=== PATIENT | male | born 1950 | race African-American/Black ===

== ENCOUNTER 2020-09-19 18:04 | Inpatient (IN) | payer MEDICARE, OTHER ==
[~2020-09-19] VITALS: Ht 172.7 cm; Wt 72.6 kg
[~2020-09-19 18:04] MED LIST: ALBUTEROL SULF8.5 GM INH; ASPIRIN81 MG ORAL; ATORVASTATIN CA10 MG ORAL; AZITHROMYCIN250 MG ORAL; BENAZEPRIL HCL10 MG ORAL; NORVASC2.5 MG ORAL
[2020-09-19] MEDS ORDERED: Aspirin Baby 81mg ONE (18:30)
[2020-09-19 18:44] VITALS: BP 141/72
[2020-09-19] MEDS ORDERED: Aspirin Baby 81mg ORAL ONE (18:45)
--- NOTE | 2020-09-19 18:55 | Emergency Room Report ---
History of Present Illness General Chief Complaint: Chest Pain Present Illness HPI Patient is a 69-year-old male who presents for increased central chest pain. Onset of symptoms approximately hour prior to arrival. Prior history of hypertension as well as smoking. Denies any fever. Denies any recent cough. Pain at onset at rest. Denies any fever or vomiting. Change in position do not modify the pain. Allergies: Coded Allergies: No Known Allergies (Unverified , 06/27/12) COVID-19 Screening Contact w/high risk pt: No Experienced COVID-19 symptoms?: No COVID-19 Testing performed REPRODUCTION SPECIALIST: No Patient History Past Medical History: see triage record Reviewed Nursing Documentation: PMH: Agreed; PSxH: Agreed Nursing Documentation-PMH Hx Cardiac Problems: Yes Hx Hypertension: Yes Hx Pacemaker: No Hx Asthma: No Hx COPD: No Hx Diabetes: No Hx Cancer: No Hx Dialysis: No Hx Neurological Problems: No Hx Cerebrovascular Accident: No Hx Seizures: No Review of Systems All Other Systems: negative except mentioned in HPI Physical Exam Vital Signs Date Time Temp Pulse Resp B/P (MAP) Pulse Ox O2 Delivery O2 Flow Rate FiO2 09/19/20 18:30 98.6 76 20 146/78 (100) 95 Room Air 09/19/20 18:44 97 Sp02 EP Interpretation: reviewed, normal General Appearance: normal inspection, well appearing, no apparent distress, alert, GCS 15, non-toxic Head: atraumatic ENT: normal ENT inspection, hearing grossly normal, normal voice Neck: normal inspection, full range of motion, supple, no bony tend Respiratory: normal inspection, lungs clear, normal breath sounds, no respiratory distress, no retraction, no wheezing Cardiovascular #1: regular rate, rhythm, no edema Gastrointestinal: normal inspection, normal bowel sounds, non tender, soft, no guarding, no hernia Genitourinary: no CVA tenderness Musculoskeletal: normal inspection, back normal, normal range of motion Neurologic: alert, responsive, speech normal, normal inspection Psychiatric: normal inspection, judgement/insight normal, mood/affect normal Medical Decision Making Diagnostic Impression: Primary Impression: Acute chest pain Additional Impression: ACS (acute coronary syndrome) ER Course Patient presented for chest pain.Differential diagnosis includes not limited to pneumonia, myocardial infarction, COPD among others. Because of complexity of patient's case laboratory tests and imaging studies were ordered. Patient was noted to have concerning appearing EKG which was sent to [facility] for evaluation. Per [facility] doesn't meet STEMI criteria. Patient's pain was noted to improve after aspirin and nitroglycerin patient had resolution of symptoms subsequently given the patient's risk factors I feel that hospital admission is indicated. Patient's initial troponin was noted to be negative as well as repeat [address] Leoncio Lindsay was contacted for inpatient management Laboratory Tests Test 09/19/20 18:39 09/19/20 19:35 09/20/20 06:15 White Blood Count 8.0 K/UL (4.8-10.8) 5.4 K/UL (4.8-10.8) Red Blood Count 4.79 M/UL (4.70-6.10) 4.54 M/UL (4.70-6.10) L Hemoglobin 13.0 G/DL (14.2-18.0) L 12.5 G/DL (14.2-18.0) L Hematocrit 40.4 % (42.0-52.0) L 39.6 % (42.0-52.0) L Mean Corpuscular Volume 84 FL (80-99) 87 FL (80-99) Mean Corpuscular Hemoglobin 27.2 PG (27.0-31.0) 27.6 PG (27.0-31.0) Mean Corpuscular Hemoglobin Concent 32.2 G/DL (32.0-36.0) 31.6 G/DL (32.0-36.0) L Red Cell Distribution Width 15.6 % (11.6-14.8) H 15.4 % (11.6-14.8) H Platelet Count 207 K/UL (150-450) 187 K/UL (150-450) Mean Platelet Volume 9.6 FL (6.5-10.1) 10.2 FL (6.5-10.1) H Neutrophils (%) (Auto) % (45.0-75.0) 50.8 % (45.0-75.0) Lymphocytes (%) (Auto) % (20.0-45.0) 34.1 % (20.0-45.0) Monocytes (%) (Auto) % (1.0-10.0) 12.3 % (1.0-10.0) H Eosinophils (%) (Auto) % (0.0-3.0) 1.7 % (0.0-3.0) Basophils (%) (Auto) % (0.0-2.0) 1.1 % (0.0-2.0) Differential Total Cells Counted 100 Neutrophils % (Manual) 82 % (45-75) H Lymphocytes % (Manual) 16 % (20-45) L Monocytes % (Manual) 2 % (1-10) Eosinophils % (Manual) 0 % (0-3) Basophils % (Manual) 0 % (0-2) Band Neutrophils 0 % (0-8) Platelet Estimate Adequate Platelet Morphology Normal Anisocytosis 1+ Prothrombin Time 11.9 SEC (9.30-11.50) H Prothrombin Time INR 1.1 (0.9-1.1) Activated Partial Thromboplast Time 27 SEC (23-33) Sodium Level 140 MMOL/L (136-145) 141 MMOL/L (136-145) Potassium Level 4.1 MMOL/L (3.5-5.1) 3.9 MMOL/L (3.5-5.1) Chloride Level 105 MMOL/L (98-107) 107 MMOL/L (98-107) Carbon Dioxide Level 26 MMOL/L (21-32) 26 MMOL/L (21-32) Anion Gap 9 mmol/L (5-15) 8 mmol/L (5-15) Blood Urea Nitrogen 16 mg/dL (7-18) 15 mg/dL (7-18) Creatinine 1.2 MG/DL (0.55-1.30) 1.1 MG/DL (0.55-1.30) Estimated Glomerular Filtration Rate > 60 mL/min (>60) > 60 mL/min (>60) Glucose Level 102 MG/DL (74-106) 73 MG/DL (74-106) L Calcium Level 8.6 MG/DL (8.5-10.1) 8.4 MG/DL (8.5-10.1) L Total Bilirubin 0.3 MG/DL (0.2-1.0) 0.3 MG/DL (0.2-1.0) Aspartate Amino Transferase (AST) 27 U/L (15-37) 24 U/L (15-37) Alanine Aminotransferase (ALT) 35 U/L (12-78) 32 U/L (12-78) Alkaline Phosphatase 143 U/L (46-116) H 119 U/L (46-116) H Troponin I 0.009 ng/mL (0.000-0.056) 0.019 ng/mL (0.000-0.056) 0.014 ng/mL (0.000-0.056) Pro-B-Type Natriuretic Peptide 24 pg/mL (0-125) Total Protein 7.7 G/DL (6.4-8.2) 6.7 G/DL (6.4-8.2) Albumin 3.9 G/DL (3.4-5.0) 3.4 G/DL (3.4-5.0) Globulin 3.8 g/dL 3.3 g/dL Albumin/Globulin Ratio 1.0 (1.0-2.7) 1.0 (1.0-2.7) Lipase 134 U/L (73-393) Phosphorus Level 3.7 MG/DL (2.5-4.9) Magnesium Level 1.8 MG/DL (1.8-2.4) Triglycerides Level 30 MG/DL (30-150) Cholesterol Level 66 MG/DL (< 200) LDL Cholesterol 31 mg/dL (<100) HDL Cholesterol 33 MG/DL (40-60) L Cholesterol/HDL Ratio 2.0 (3.3-4.4) L Last Vital Signs Date Time Temp Pulse Resp B/P (MAP) Pulse Ox O2 Delivery O2 Flow Rate FiO2 09/19/20 18:44 78 17 Room Air 97 09/19/20 18:44 98.6 141/72 98 Status: improved Disposition: ADMITTED INPATIENT Condition: Stable Referrals: NON PHYSICIAN (PCP) Darryn Chatman MD Sep 19, 2020 18:55
[2020-09-19 19:15] VITALS: BP 164/85
[2020-09-19 19:38] LABS: ANION GAP 9 mmol/L (5-15); BLOOD UREA NITROGEN 16 mg/dL (7-18); CALCIUM 8.6 MG/DL (8.5-10.1); CARBON DIOXIDE 26 MMOL/L (21-32); CHLORIDE 105 MMOL/L (98-107); CREATININE 1.2 MG/DL (0.55-1.30); POTASSIUM 4.1 MMOL/L (3.5-5.1); SODIUM 140 MMOL/L (136-145)
[2020-09-19 19:48] LABS: ALANINE AMINOTRANSFERASE 35 U/L (12-78); ALBUMIN 3.9 G/DL (3.4-5.0); ALKALINE PHOSPHATASE 143 U/L (46-116); ASPARTATE AMINO TRANSFERASE 27 U/L (15-37); BILIRUBIN,TOTAL 0.3 MG/DL (0.2-1.0)
[2020-09-19] MEDS ORDERED: Nitroglycerin Subl 0.4mg tab SL PRN ×2 (20:00→23:45)
[2020-09-19 20:12] LABS: HEMATOCRIT 40.4 % (42.0-52.0); MEAN CORPUSCULAR VOLUME 84 FL (80-99); PLATELET COUNT 207 K/UL (150-450); RED BLOOD COUNT 4.79 M/UL (4.70-6.10); RED CELL DISTRIBUTION WIDTH 15.6 % (11.6-14.8)
[2020-09-19 20:19] LABS: INR 1.1 (0.9-1.1)
[2020-09-19] MEDS ORDERED: Enoxaparin 60mg Inj SUBQ ONE (20:45)
[2020-09-19 21:00] VITALS: BP 162/70
[2020-09-19 22:00] VITALS: BP 158/83
[2020-09-20] VITALS: BP 146/66
[2020-09-20 04:00] VITALS: BP 123/62
[2020-09-20] MEDS: Heparin 5000 units/ml inj SUBQ SCH ×2 (05:58→14:10)
[2020-09-20 06:46] LABS: BASOPHILS % (AUTO) 1.1 % (0.0-2.0); EOSINOPHILS % (AUTO) 1.7 % (0.0-3.0); HEMATOCRIT 39.6 % (42.0-52.0); HEMOGLOBIN 12.5 G/DL (14.2-18.0); LYMPHOCYTES % (AUTO) 34.1 % (20.0-45.0); MEAN CORPUSCULAR VOLUME 87 FL (80-99); MONOCYTES % (AUTO) 12.3 % (1.0-10.0); NEUTROPHILS % (AUTO) 50.8 % (45.0-75.0); PLATELET COUNT 187 K/UL (150-450); RED BLOOD COUNT 4.54 M/UL (4.70-6.10); RED CELL DISTRIBUTION WIDTH 15.4 % (11.6-14.8); WHITE BLOOD COUNT 5.4 K/UL (4.8-10.8)
[2020-09-20] MEDS ORDERED: Lexiscan 0.4mg/5ml syringe IV PRN (07:00)
[2020-09-20] MEDS ORDERED: Lexiscan 0.4mg/5ml syringe IV SCH (07:00)
[2020-09-20 07:56] LABS: ALANINE AMINOTRANSFERASE 32 U/L (12-78); ALBUMIN 3.4 G/DL (3.4-5.0); ALKALINE PHOSPHATASE 119 U/L (46-116); ANION GAP 8 mmol/L (5-15); ASPARTATE AMINO TRANSFERASE 24 U/L (15-37); BILIRUBIN,TOTAL 0.3 MG/DL (0.2-1.0); BLOOD UREA NITROGEN 15 mg/dL (7-18); CALCIUM 8.4 MG/DL (8.5-10.1); CARBON DIOXIDE 26 MMOL/L (21-32); CHLORIDE 107 MMOL/L (98-107); CHOLESTEROL 66 MG/DL (< 200); CREATININE 1.1 MG/DL (0.55-1.30); HDL CHOLESTEROL 33 MG/DL (40-60); PHOSPHORUS 3.7 MG/DL (2.5-4.9); POTASSIUM 3.9 MMOL/L (3.5-5.1); SODIUM 141 MMOL/L (136-145); TRIGLYCERIDES 30 MG/DL (30-150)
[2020-09-20 08:00] VITALS: BP 111/58
[2020-09-20] MEDS ORDERED: Aspirin Baby 81mg ORAL SCH (09:00)
[2020-09-20] MEDS: Benazepril 10mg tab ORAL SCH ×2 (09:00→13:07)
[2020-09-20 12:00] VITALS: BP 133/67
--- NOTE | 2020-09-20 12:34 | Consultation ---
History of Present Illness General Date patient seen: Sep 20, 2020 Chief Complaint: Chest Pain Present Illness HPI 69-year-old gentleman with past medical history of hypertension and smoking, who presented to the emergency room because of the acute episode of chest pain which felt like pressure like. The patient's pain was not radiating and spontaneously resolved. Allergies: Coded Allergies: No Known Allergies (Unverified , 06/27/12) Medication History Scheduled Amlodipine Besylate (Norvasc), 2.5 MG ORAL DAILY, (Reported) Aspirin* (Aspirin*), 162 MG ORAL DAILY Atorvastatin Calcium* (Lipitor*), 10 MG ORAL BEDTIME, (Reported) Benazepril Hcl* (Benazepril Hcl*), 10 MG ORAL DAILY, (Reported) Discontinued Medications Albuterol Sulfate* (Albuterol Sulfate Mdi*), 2 PUFF INH Q4H PRN for Shortness of Breath Discontinued Reason: Therapy completed Azithromycin* (Zithromax*), 250 MG ORAL DAILY Discontinued Reason: Therapy completed Patient History Healthcare decision maker Resuscitation status Advanced Directive on File Past Medical/Surgical History Past Medical/Surgical History: (1) Smoking (2) Hypertension Review of Systems All Other Systems: negative except mentioned in HPI Physical Exam General Appearance: WD/WN, no apparent distress Lines, tubes and drains: peripheral HEENT: normocephalic, atraumatic Respiratory/Chest: chest wall non-tender, lungs clear Cardiovascular/Chest: normal peripheral pulses, normal rate Abdomen: normal bowel sounds Genitourinary/Rectal: normal genital exam, normal rectal exam Extremities: normal range of motion Last 24 Hour Vital Signs Date Time Temp Pulse Resp B/P (MAP) Pulse Ox O2 Delivery O2 Flow Rate FiO2 09/20/20 09:00 111/58 09/20/20 09:00 57 111/58 09/20/20 09:00 Room Air 09/20/20 08:00 57 09/20/20 08:00 98.8 59 18 111/58 (75) 97 09/20/20 04:00 98.9 60 18 123/62 (82) 98 09/20/20 04:00 75 09/20/20 00:00 97.7 56 18 146/66 (92) 98 09/20/20 00:00 66 09/19/20 23:50 Room Air 11/19/20 22:30 68 09/19/20 22:00 98.6 74 17 158/83 99 Nasal Cannula 2.0 97 09/19/20 22:00 98.6 70 17 162/70 99 Nasal Cannula 2.0 97 09/19/20 21:00 98.6 70 17 162/70 99 Nasal Cannula 2.0 97 09/19/20 19:15 98.6 72 17 164/85 99 Nasal Cannula 2.0 97 09/19/20 18:44 78 17 Room Air 97 09/19/20 18:44 98.6 98 17 141/72 98 Room Air 09/19/20 18:30 98.6 76 20 146/78 (100) 95 Room Air Intake and Output 09/19/20 09/20/20 19:00 07:00 Intake Total 0 ml Balance 0 ml Intake Oral 0 ml # Voids 1 # Bowel Movements 1 Laboratory Tests Test 09/19/20 18:39 09/19/20 19:35 09/20/20 06:15 White Blood Count 8.0 K/UL (4.8-10.8) 5.4 K/UL (4.8-10.8) Red Blood Count 4.79 M/UL (4.70-6.10) 4.54 M/UL (4.70-6.10) L Hemoglobin 13.0 G/DL (14.2-18.0) L 12.5 G/DL (14.2-18.0) L Hematocrit 40.4 % (42.0-52.0) L 39.6 % (42.0-52.0) L Mean Corpuscular Volume 84 FL (80-99) 87 FL (80-99) Mean Corpuscular Hemoglobin 27.2 PG (27.0-31.0) 27.6 PG (27.0-31.0) Mean Corpuscular Hemoglobin Concent 32.2 G/DL (32.0-36.0) 31.6 G/DL (32.0-36.0) L Red Cell Distribution Width 15.6 % (11.6-14.8) H 15.4 % (11.6-14.8) H Platelet Count 207 K/UL (150-450) 187 K/UL (150-450) Mean Platelet Volume 9.6 FL (6.5-10.1) 10.2 FL (6.5-10.1) H Neutrophils (%) (Auto) % (45.0-75.0) 50.8 % (45.0-75.0) Lymphocytes (%) (Auto) % (20.0-45.0) 34.1 % (20.0-45.0) Monocytes (%) (Auto) % (1.0-10.0) 12.3 % (1.0-10.0) H Eosinophils (%) (Auto) % (0.0-3.0) 1.7 % (0.0-3.0) Basophils (%) (Auto) % (0.0-2.0) 1.1 % (0.0-2.0) Differential Total Cells Counted 100 Neutrophils % (Manual) 82 % (45-75) H Lymphocytes % (Manual) 16 % (20-45) L Monocytes % (Manual) 2 % (1-10) Eosinophils % (Manual) 0 % (0-3) Basophils % (Manual) 0 % (0-2) Band Neutrophils 0 % (0-8) Platelet Estimate Adequate Platelet Morphology Normal Anisocytosis 1+ Prothrombin Time 11.9 SEC (9.30-11.50) H Prothromb Time International Ratio 1.1 (0.9-1.1) Activated Partial Thromboplast Time 27 SEC (23-33) Sodium Level 140 MMOL/L (136-145) 141 MMOL/L (136-145) Potassium Level 4.1 MMOL/L (3.5-5.1) 3.9 MMOL/L (3.5-5.1) Chloride Level 105 MMOL/L (98-107) 107 MMOL/L (98-107) Carbon Dioxide Level 26 MMOL/L (21-32) 26 MMOL/L (21-32) Anion Gap 9 mmol/L (5-15) 8 mmol/L (5-15) Blood Urea Nitrogen 16 mg/dL (7-18) 15 mg/dL (7-18) Creatinine 1.2 MG/DL (0.55-1.30) 1.1 MG/DL (0.55-1.30) Estimat Glomerular Filtration Rate > 60 mL/min (>60) > 60 mL/min (>60) Glucose Level 102 MG/DL (74-106) 73 MG/DL (74-106) L Calcium Level 8.6 MG/DL (8.5-10.1) 8.4 MG/DL (8.5-10.1) L Total Bilirubin 0.3 MG/DL (0.2-1.0) 0.3 MG/DL (0.2-1.0) Aspartate Amino Transf (AST/SGOT) 27 U/L (15-37) 24 U/L (15-37) Alanine Aminotransferase (ALT/SGPT) 35 U/L (12-78) 32 U/L (12-78) Alkaline Phosphatase 143 U/L (46-116) H 119 U/L (46-116) H Troponin I 0.009 ng/mL (0.000-0.056) 0.019 ng/mL (0.000-0.056) 0.014 ng/mL (0.000-0.056) Pro-B-Type Natriuretic Peptide 24 pg/mL (0-125) Total Protein 7.7 G/DL (6.4-8.2) 6.7 G/DL (6.4-8.2) Albumin 3.9 G/DL (3.4-5.0) 3.4 G/DL (3.4-5.0) Globulin 3.8 g/dL 3.3 g/dL Albumin/Globulin Ratio 1.0 (1.0-2.7) 1.0 (1.0-2.7) Lipase 134 U/L (73-393) Phosphorus Level 3.7 MG/DL (2.5-4.9) Magnesium Level 1.8 MG/DL (1.8-2.4) Triglycerides Level 30 MG/DL (30-150) Cholesterol Level 66 MG/DL (< 200) LDL Cholesterol 31 mg/dL (<100) HDL Cholesterol 33 MG/DL (40-60) L Cholesterol/HDL Ratio 2.0 (3.3-4.4) L Height (Feet): 5 Height (Inches): 8.00 Weight (Pounds): 160 Medications Current Medications Medications (Trade) Dose Ordered Sig/Renetta Route PRN Reason Start Time Stop Time Status Last Admin Dose Admin Acetaminophen (Tylenol) 650 mg Q6H PRN ORAL Mild Pain (Pain Scale 1-3) 09/19/20 23:45 10/19/20 23:44 Amlodipine Besylate (Norvasc) 2.5 mg DAILY ORAL 09/20/20 09:00 10/20/20 08:59 Aspirin (ASA) 162 mg DAILY ORAL 09/20/20 09:00 11/04/20 08:59 09/20/20 11:07 Atorvastatin Calcium (Lipitor) 10 mg BEDTIME ORAL 09/20/20 21:00 12/19/20 20:59 Benazepril HCl (Lotensin) 10 mg DAILY ORAL 09/20/20 09:00 10/20/20 08:59 Heparin Sodium (Porcine) (Heparin 5000 units/ml) 5,000 units EVERY 8 HOURS SUBQ 09/20/20 06:00 11/04/20 05:59 09/20/20 05:58 Nitroglycerin (Ntg) 0.4 mg Q5M PRN SL Prn Chest Pain 09/19/20 23:45 10/19/20 23:44 Regadenoson (Lexiscan) 0.4 mg ONCE PRN IV stress test 09/20/20 07:00 09/22/20 06:59 Assessment/Plan Problem List: (1) ACS (acute coronary syndrome) ICD Codes: I24.9 - Acute ischemic heart disease, unspecified SNOMED: 326158459 (2) Hypertension ICD Codes: I10 - Hypertension SNOMED: 35171654 (3) Smoking ICD Codes: F17.200 - Smoking SNOMED: 87796112 Assessment/Plan: serial ekg, troponin echocardiogram cardiology evaluation monitor BP Juan Myers MD Sep 20, 2020 12:34
--- NOTE | 2020-09-20 13:04 | History & Physical ---
History and Physical History & Physicial Job # Leoncio Lindsay MD Sep 20, 2020 13:04
[2020-09-20 13:07] VITALS: BP 209/80
--- NOTE | 2020-09-20 15:11 | Consultation ---
Consult Note Assessment/Plan Cardiac EP/ Cardiology full note dictated [id number] Mercy Ray MD Sep 20, 2020 15:11
--- NOTE | 2020-09-20 16:23 | Cardiology Report ---
APPROVED REPORT EKG Measurement Heart [id number] <Conclusion> Sinus rhythm with sinus arrhythmia with occasional premature ventricular complexes Otherwise normal ECG
--- NOTE | 2020-09-20 16:44 | Diagnostic Imaging Report ---
Indication: Shortness of breath Technique: XRAY Chest 1v Comparison: 05/13/2016 Findings: Heart size and mediastinal contours are within normal limits for AP technique. There is no focal airspace consolidation, pneumothorax or pleural effusion. Osseous structures demonstrate no acute abnormality. Impression: No radiographic evidence of acute cardiopulmonary disease.
--- NOTE | 2020-09-20 17:30 | Consultation ---
DATE OF CONSULTATION: 09/20/2020 CARDIOLOGY CONSULT REASON FOR CONSULT: Palpitations. HISTORY OF PRESENT ILLNESS: The patient is a 69-year-old man with a history of previous chest pain, hepatitis C, hypertension, cocaine abuse, and schizophrenia versus bipolar disorder, who presented yesterday with complaints of a sensation of rapid heartbeat. He states that he was at home sitting, smoking cigarette when symptoms began. He did not have chest pain, dizziness, lightheadedness, or syncope. He was noted to be bradycardic with heart rates as low as the 40s on admission and blood pressure elevated in the 140s to 160s over 80s to 90 mmHg. He was admitted and has ruled out for myocardial infarction with negative troponin levels. Heart rates have remained in the 50s. A stress nuclear study was ordered today. However, with intravenous dobutamine, he became severely hypertensive with systolic pressure of 210 at 30 mcg/kg per minute of dobutamine, so the medication was stopped and the test cancelled. He has not had further symptoms. He does admit to having stopped his benazepril about three weeks prior to admission as he states his blood pressure was controlled. Review of his past hospital records showed that he did have a negative stress nuclear study in 2007. He has had subsequent hospitalizations for chest pain and ruling out for myocardial infarction as recently as 2017. At that time, his chest pain was felt due to cocaine use. He denies any substance abuse over the past two years. MEDICATIONS: Benazepril 10 mg daily, atorvastatin 10 mg daily, aspirin 81 mg daily, amlodipine 2.5 mg daily. ALLERGIES: No known drug allergies. PAST MEDICAL HISTORY: As noted above. SOCIAL HISTORY: The patient smokes about one-half pack per day. Denies alcohol or any current drug use. He has a previous history of cocaine use, but denies use in the past 2 years. PHYSICAL EXAMINATION: VITAL SIGNS: Blood pressure is 146/55, pulse 56 and regular, respirations 20, and afebrile. GENERAL: An alert, well-developed man, in no acute distress. HEENT: Normocephalic and atraumatic. Pupils are equal, round, and reactive to light. Sclerae anicteric. Oral mucosa are moist. NECK: Supple. There is no jugular venous distention. Carotid pulses are 2+ bilaterally without bruits. LUNGS: Clear to auscultation bilaterally. HEART: Regular rate and rhythm, bradycardic, S1-S2 with no murmur or S3. ABDOMEN: Soft, nontender. No palpable mass. EXTREMITIES: No cyanosis, clubbing, or edema. LABORATORY DATA: Hemoglobin of 12.5, white blood count 5400, platelets 187,000. Troponin 0.009, repeat 0.019, and third set 0.014. Sodium 141, potassium 3.9, BUN 15, and creatinine 1.1. EKG shows sinus rhythm at 66 beats per minute with sinus arrhythmia, peaked T-waves in V1 to V3. No ST-segment elevation or depression. Normal axis. ASSESSMENT AND RECOMMENDATIONS: The patient is a 69-year-old man with a history of hypertension, hepatitis C, treated, remote history of cocaine abuse, and schizophrenia versus bipolar disorder, who was admitted with a sensation of rapid heart rate. On telemetry, he has had sinus rhythm to sinus bradycardia. He has not had chest pain and has no evidence by EKG or troponin levels for an acute coronary syndrome. He was unable to do his stress nuclear study today due to elevated blood pressure, and he had stopped his outpatient antihypertensive medication at home. I would recommend restarting his blood pressure medications including amlodipine, benazepril, and also continue aspirin and statin. I would favor outpatient stress testing. An outpatient event monitor could also be considered to assess his complaint of palpitations. Mercy Ray M.D. DR: NORA JOB#: [id number] CC:
--- NOTE | 2020-09-20 18:17 | Diagnostic Imaging Report ---
EXAM: NM Myocardial Perfusion with SPECT CLINICAL HISTORY: CP TECHNIQUE: Myocardial perfusion imaging with tomographic (SPECT) including attenuation correction, qualitative or quantitative wall motion, ejection fraction by first pass or gated technique, with additional quantification when performed. Study performed following intravenous administration of Tc99m Sestamibi. COMPARISON: No relevant prior studies available. FINDINGS: Myocardial perfusion: Unremarkable. No fixed or reversible perfusion defects. Myocardial wall motion: Normal wall motion. Left ventricular ejection fraction: Within normal limits. Left ventricular volume: Within normal limits. Other findings: Rest only images were acquired. Reportedly during dobutamine infusion, patient developed severe hypertension with systolic pressures above 200 mmHg, prompting the title camera operator to cancel the stress portion of the exam. Single segment mid wall septal 2 standard deviation relative perfusion decrease of uncertain significance given lack of stress images. Otherwise uniform distribution of left ventricular myocardial radiotracer. IMPRESSION: 1. Rest only images were acquired. 2. Reportedly during dobutamine infusion, patient developed severe hypertension with systolic pressures above 200 mmHg, prompting the title camera operator to cancel the stress portion of the exam. 3. Single segment mid wall septal 2 standard deviation relative perfusion decrease of uncertain significance given lack of stress images. 4. Otherwise uniform distribution of left ventricular myocardial radiotracer.
--- NOTE | 2020-09-21 10:14 | History and Physical Report ---
DATE OF ADMISSION: 09/19/2020 CHIEF COMPLAINT: Chest pain and palpitation. HISTORY OF PRESENT ILLNESS: This is a 69-year-old gentleman with past medical history significant for cocaine abuse, hypertension, hepatitis C positive, and schizophrenia, who presented to the emergency department complaining about palpitation as well as chest discomfort. He was at home sitting smoking cigars when his symptoms began. He denies any chest pain, dizziness, lightheadedness, or syncope. He was noted to have a slow heartbeat in 40s on admission and blood pressure was systolically in 140s and 160s. The patient has a history of prior hospitalization due to chest pain. Shortly after initial evaluation in the emergency department, the patient was admitted to the hospital with chest pain, possible acute coronary syndrome as well as palpitations. PAST MEDICAL HISTORY/PAST SURGICAL HISTORY: As above history of hypertension, chronic smoker, and dyslipidemia. MEDICATIONS AT HOME: Significant for amlodipine, aspirin, atorvastatin, benazepril. ALLERGIES: No known drug allergies. SOCIAL HISTORY: The patient is using cocaine as well as chronic smoker. FAMILY HISTORY: Noncontributory. REVIEW OF SYSTEMS: Mostly as above. Denies any dysuria, frequency, or hematuria. Denies any hemoptysis or hematochezia. Denies any bright red blood per rectum. PHYSICAL EXAMINATION: VITAL SIGNS: On admission, temperature 98.6, pulse of 76, respirations 20, and blood pressure 146/78. GENERAL: The patient is awake and responsive, in no acute distress. HEAD AND NECK: Pupils are equal and reactive to light. Extraocular movements are intact. Neck was supple. No JVD. LUNGS: Good air entry with no wheezing or rales. HEART: S1, S2. Regular rhythm. No gallops. ABDOMEN: Soft, nondistended, and nontender. Positive bowel sounds. EXTREMITIES: No cyanosis, clubbing, or edema. NEUROLOGIC: Cranial nerves II through XII grossly intact. Motor is 5/5 in all extremities. RECTAL: Refused and deferred. GENITOURINARY: Refused and deferred. PSYCHIATRIC: Mood and affect is intact. LABORATORY DATA: On admission, sodium 143, potassium 4.1, chloride 105, bicarb 26, BUN 16, creatinine 1.2. First and second troponin is 0.009, second troponin 0.019. Lipase is 134. PT of 11, INR 1.1, PTT of 27. WBC 8.0, hemoglobin 13, hematocrit 40, platelets 207,000. The patient had a chest x-ray, no radiographic evidence of acute cardiopulmonary disease. EKG, sinus rhythm, ventricular rate of 66 with sinus arrhythmia, peaked T-waves in leads V1 through V3. No ST elevation or depression. Normal axis. ASSESSMENT: 1. Hypertension. 2. Hepatitis C positive. 3. Remote history of cocaine abuse. 4. Schizophrenia versus bipolar disorder. 5. Chest pain, possible acute coronary syndrome. 6. Palpitations with rapid heart rate. PLAN: 1. Admit the patient to monitored unit. 2. We will follow up with Dr. Mercy Ray from Cardiology and Dr. Juan Myers, Pulmonary/Critical Care. 3. Serial cardiac enzymes. 4. Nuclear stress test. 5. Monitor blood pressure closely. 6. Code status is Full Code. 7. DVT prophylaxis, heparin subcutaneous. Leoncio Lindsay M.D. DR: JOANIE JOB#: [id number] CC:
--- NOTE | 2020-09-22 10:58 | Discharge Summary ---
Discharge Summary Discharge Summary _ DATE OF ADMISSION: 09/19/2020 DATE OF DISCHARGE: 09/20/2020 DISCHARGED BY: Dr. Leoncio Lindsay CONSULTANTS: Dr. Mercy Myers BRIEF HOSPITAL COURSE: The patient is a 69-year-old -[place] gentleman with past medical history significant for cocaine abuse, hypertension, hepatitis C, schizophrenia, presented to the emergency department due to palpitation as well as chest discomfort. He was at home sitting, smoking cigars when his symptoms started. He denied any lightheadedness, or syncope. He was noted to have a slow heart beat in the 40s on admission and blood pressure was elevated. He had prior hospitalization due to chest pain. He stopped taking benazepril 3 weeks prior to admission. Upon evaluation at the ED, blood test was stable. Electrolytes were normal. Troponin was negative however EKG was concerning. EKG showed sinus rhythm, ventricular rate of 66 with sinus arrhythmia, peaked T waves in leads V1 through V3. No ST elevation or depression. He was given aspirin and nitroglycerin. Due to his risk factors, he was admitted for evaluation of acute coronary syndrome. He was admitted to monitored floor. Cardiac enzymes were monitored. His heart rate remained in the 50s. He was ordered a stress of dobutamine. However, with intravenous dobutamine, he became severely hypertensive with systolic blood pressure of 210 at 30 MCG/kilogram per minute of dobutamine so stress test was canceled. He was restarted on amlodipine, benazepril. He was continued on aspirin and statin. He was recommended outpatient stress test. Patient may also benefit from an outpatient event monitor due to his complaints of palpitation. Due to rapid improvement of symptoms, he was cleared for discharge home, to follow-up as outpatient. FINAL DIAGNOSES: Hypertension Hepatitis C positive Remote history of cocaine abuse Schizophrenia versus bipolar disorder Chest pain, possible acute coronary syndrome Palpitations with rapid heart rate DISPOSITION: Patient was discharged home. DISCHARGE MEDICATIONS: Refer to Discharge Medication List. DISCHARGE INSTRUCTIONS: Follow-up in a week. I have been assigned to complete a discharge summary on this account, I was not involved with the patient's management.--ALLI Cabezas Jacqueline Robles NP Sep 22, 2020 10:58
--- NOTE | 2020-09-23 10:36 | Cardiology Report ---
APPROVED REPORT EXAM: Two-dimensional and M-mode echocardiogram with Doppler and color Doppler. INDICATION Chest Pain M-Mode DIMENSIONS IVSd0.8 (0.7-1.1cm)Left Atrium (MM)3.5 (1.6-4.0cm) LVDd4.8 (3.5-5.6cm)Aortic Root3.5 (2.0-3.7cm) PWd0.8 (0.7-1.1cm)Aortic Cusp Exc.2.0 (1.5-2.0cm) IVSs1.1 cm LVDs3.0 (2.5-4.0cm) PWs1.1 cm <Conclusion> Normal left ventricular chamber size, systolic function and wall motion. Left ventricular ejection fraction estimated to be 60 %. Mild left ventricular hypertrophy . No evidence of pericardial effusion. All other cardiac chamber sizes are within normal limits. Moderate mitral valve leaflets calcification with normal excursion. Moderate mitral annulus and aortic root calcification. Pulmonic valve not well visualized. Normal tricuspid valve structure. IVC at normal size with physiologic collapse. A color flow and spectral Doppler study was performed and revealed: Trace aortic insufficiency. Mild mitral regurgitation. Mitral inflow indicates normal left ventricular diastolic function. Moderate tricuspid regurgitation. Tricuspid systolic velocities suggests peak right ventricular systolic pressure of 30 mmHg. Trace pulmonic regurgitation present
== END 2020-09-20 16:25 | disposition home or self-care (01) | DRG 311 ==
LOC: EMR 18:51 → 2E 20:17 → EDBEDREQ 21:16
DX: I24.9 Acute ischemic heart disease, unspecified (principal); I10 Essential (primary) hypertension; B19.20 Unspecified viral hepatitis C without hepatic coma; R00.2 Palpitations; F20.9 Schizophrenia, unspecified; F17.200 Nicotine dependence, unspecified, uncomplicated; F31.9 Bipolar disorder, unspecified; F14.11 Cocaine abuse, in remission; Z79.82 Long term (current) use of aspirin
CPT/HCPCS: 36415; 71045; 78451; 80053; 80061; 83690; 83735; 83880; 84100; 84484; 85007; 85025; 85610; 85730; 93005; 93017; 93306; 99285; J2785